=== PATIENT | male | born 1990 | race Caucasian/White ===

== ENCOUNTER 2017-09-26 21:02 | Emergency (ER) | payer SELFPAY ==
[~2017-09-26] VITALS: Ht 172.7 cm; Wt 77.3 kg
[~2017-09-26 21:02] MED LIST: CIPR500T2 PO; CLOTR1%T TOP; Z.0.NO CURRENT MEDS
[2017-09-26 21:04] VITALS: BP 159/97; PULSE 79; RESP 16; TEMP 98.2; O2SAT 97
--- NOTE | 2017-10-01 11:31 | PD ---
Physical Exam Date Seen by Provider: Sep 26, 2017 Time Seen by Provider: 21:07 Narrative 26-year-old male presents to the emergency department reporting lower abdominal pain, burning with urination that started to 3 days ago. He is concerned about possible STD. He denies penile discharge. Patient is evaluated in triage. He is awaiting medical bed for further evaluation and disposition. [facility] Medical Record Reviewed: Yes Supervised Visit with ANTONIO: No Narrative Course 26-year-old male presents to the emergency department recording lower abdominal pain and burning with urination for 2-3 days. He is concerned of STD. Patient initially seen in triage. He is awaiting a medical bed for further evaluation and disposition. Patient left AGAINST MEDICAL ADVICE before further workup could be completed. Diagnosis Primary Impression: Dysuria Additional Impression: Left against medical advice Disposition: 07 AGAINST MEDICAL ADVICE Mariposa Kenny Oct 01, 2017 11:31
== END 2017-09-26 23:47 | disposition left against medical advice (07) ==
LOC: NED 21:02
DX: R30.0 Dysuria (principal)
CPT/HCPCS: 99281